=== PATIENT | male | born 1945 | race Caucasian/White ===

== ENCOUNTER 2021-07-03 06:17 | Observation (INO) ==
[2021-07-03] MEDS ORDERED: CeFAZolin Syr 2,000MG/20 ML 2,000 MG/20 ML SYRINGE IVPB ONE (06:53)
[2021-07-03] MEDS ORDERED: *HR* Vasopressin 20 UNIT/ML VIAL ONE (06:57)
[2021-07-03] MEDS ORDERED: Acetaminophen IV 1,000 MG/100 ML BAG IVPB ONE (06:57)
[2021-07-03] MEDS ORDERED: Ringers Solution, Lactated 1,000 ML IVC SCH (07:00)
[2021-07-03] MEDS ORDERED: Ondansetron 4 MG/2 ML VIAL IVP PRN ×2 (07:11→21:30)
[2021-07-03] MEDS ORDERED: *HR* OxyCODONE Immed Rel 5 MG TABLET PO PRN (07:11)
[2021-07-03] MEDS ORDERED: *HR* HYDROmorphone PF 0.5 MG/0.5 ML SYRINGE IVP PRN (07:11)
[2021-07-03] MEDS ORDERED: *HR* Propofol 200 MG/20 ML VIAL IVP ONE (07:18)
[2021-07-03] MEDS ORDERED: *HR* FentaNYL (PF) 100 MCG/2 ML VIAL ONE (07:18)
[2021-07-03] MEDS ORDERED: Lidocaine -MPF 2% 5 ML VIAL ONE (07:19)
[2021-07-03] MEDS ORDERED: *HR* HYDROMORPHONE 2 MG/ML VIAL ONE (08:18)
[2021-07-03] MEDS: *HR* HYDROcodone/Acet 5/325 mg TABLET PO PRN ×3 (11:10→18:32)
[2021-07-03] MEDS ORDERED: *HR* Belladonna Alkaloids/Opium 60 MG RECTAL SUPPOSITORY RC PRN (17:00)
[2021-07-03] MEDS ORDERED: *HR* FentaNYL (PF) 100 MCG/2 ML VIAL IVP ONE (20:28)
[2021-07-03] MEDS ORDERED: *HR* Promethazine 25 MG/ML VIAL IM ONE (20:39)
[2021-07-03] MEDS ORDERED: Naloxone 0.4 MG/ML INJ IVP PRN (21:30)
[2021-07-03] MEDS ORDERED: *HR* Belladonna Alkaloids/Opium 30 MG RECTAL SUPPOSITORY RC PRN (21:30)
[2021-07-03] MEDS ORDERED: Acetaminophen 325 MG TABLET PO PRN (21:30)
[2021-07-03] MEDS: *HR* OxyCODONE Immed Rel 5 MG TABLET PO PRN (22:00)
[2021-07-03] MEDS: 0.9 % Sodium Chloride 1,000 ML IVC SCH (23:06)
[2021-07-04] MEDS: *HR* HYDROcodone/Acet 5/325 mg TABLET PO PRN ×3 (03:03→21:26)
[2021-07-04 04:03] LABS: Basophils % 0.1 %; Eosinophils # 0.1 K/mcL (0.0-0.6); Eosinophils % 0.5 %; Hematocrit 29.2 % (37.5-50.1); Hemoglobin 9.7 g/dL (12.9-16.9); Immature Granulocytes % 1.6 % (0-4); Lymphocytes # 1.1 K/mcL (0.6-4.6); Lymphocytes % 8.2 %; Mean Corpuscular HGB Conc 33.2 g/dL (31.6-35.5); Mean Corpuscular Hemoglobin 29.3 pg (28.0-33.3); Mean Corpuscular Volume 88.2 fL (83.0-100.0); Mean Platelet Volume 10.7 fL (9.4-12.4); Monocytes # 1.3 K/mcL (0.0-1.3); Monocytes % 9.7 %; Platelet Count 241 K/mcL (140-400); Red Blood Count 3.31 M/mcL (4.19-5.50); Red Cell Distribution Width 14.1 % (11.5-14.5); Segmented Neutrophils % 79.9 %; White Blood Count 13.1 K/mcL (4.3-11.1)
[2021-07-04 04:06] LABS: Neutrophils # 10.5 K/mcL (1.6-8.9)
[2021-07-04 04:08] LABS: BUN/Creatinine Ratio 14 (6-26); Blood Urea Nitrogen 11 mg/dL (8-23); Calcium 8.1 mg/dL (8.6-10.3); Carbon Dioxide 30 mEq/L (23-29); Chloride 102 mEq/L (98-107); Glucose 96 mg/dL (70-105); Osmolality,Calculated 283 (280-300); Potassium 4.2 mEq/L (3.5-5.1); Sodium 137 mEq/L (136-145); eGFR For African Americans > 60 (> 60); eGFR For Non-African Americans > 60 (> 60)
[2021-07-04 04:26] LABS: Anisocytosis 1+ (Not Present); Platelet Estimate Normal (Normal)
[2021-07-04] MEDS: 0.9 % Sodium Chloride 1,000 ML IVC SCH ×3 (05:40→21:26)
[2021-07-04] MEDS: *HR* OxyCODONE Immed Rel 5 MG TABLET PO PRN ×2 (08:12→17:27)
[2021-07-05] MEDS: *HR* OxyCODONE Immed Rel 5 MG TABLET PO PRN ×4 (00:20→23:55)
[2021-07-05] MEDS: *HR* HYDROcodone/Acet 5/325 mg TABLET PO PRN (05:46)
[2021-07-05] MEDS: 0.9 % Sodium Chloride 1,000 ML IVC SCH ×2 (05:46→13:42)
[2021-07-05 08:37] LABS: Mean Corpuscular Hemoglobin 28.5 pg (28.0-33.3); Mean Platelet Volume 10.3 fL (9.4-12.4); Platelet Count 190 K/mcL (140-400); Red Blood Count 2.81 M/mcL (4.19-5.50); Red Cell Distribution Width 14.2 % (11.5-14.5); White Blood Count 8.1 K/mcL (4.3-11.1)
[2021-07-05 08:51] LABS: BUN/Creatinine Ratio 11 (6-26); Blood Urea Nitrogen 8 mg/dL (8-23); Calcium 7.9 mg/dL (8.6-10.3); Carbon Dioxide 30 mEq/L (23-29); Chloride 107 mEq/L (98-107); Glucose 88 mg/dL (70-105); Osmolality,Calculated 286 (280-300); Sodium 139 mEq/L (136-145); eGFR For African Americans > 60 (> 60); eGFR For Non-African Americans > 60 (> 60)
[2021-07-05] MEDS ORDERED: Ondansetron 4 MG/2 ML VIAL IVP PRN ×2 (19:17→22:50)
[2021-07-05] MEDS ORDERED: *HR* HYDROmorphone PF 0.5 MG/0.5 ML SYRINGE IVP PRN (19:17)
[2021-07-05] MEDS ORDERED: *HR* OxyCODONE Immed Rel 5 MG TABLET PO PRN (19:17)
[2021-07-05] MEDS ORDERED: Promethazine 6.25 MG in Water for inj. (sterile) 20 ML IVPB PRN (19:17)
[2021-07-05] MEDS ORDERED: Lidocaine -MPF 2% 5 ML VIAL ONE (20:38)
[2021-07-05] MEDS ORDERED: Ondansetron 4 MG/2 ML VIAL ONE (20:38)
[2021-07-05] MEDS ORDERED: *HR* Propofol 200 MG/20 ML VIAL IVP ONE (20:38)
[2021-07-05] MEDS ORDERED: EPHEDrine 50 MG/ML VIAL ONE (21:01)
[2021-07-05] MEDS ORDERED: *HR* FentaNYL (PF) 100 MCG/2 ML VIAL ONE ×2 (21:07→21:48)
[2021-07-05] MEDS ORDERED: *HR* Belladonna Alkaloids/Opium 30 MG RECTAL SUPPOSITORY RC PRN (22:50)
[2021-07-05] MEDS ORDERED: Naloxone 0.4 MG/ML INJ IVP PRN (22:50)
[2021-07-05] MEDS ORDERED: *HR* HYDROcodone/Acet 5/325 mg TABLET PO PRN (22:50)
[2021-07-05] MEDS ORDERED: Acetaminophen 325 MG TABLET PO PRN (22:50)
[2021-07-05] MEDS ORDERED: 0.9 % Sodium Chloride 1,000 ML IVC SCH (22:50)
[2021-07-06 04:41] LABS: Hematocrit 25.5 % (37.5-50.1); Hemoglobin 8.3 g/dL (12.9-16.9); Mean Corpuscular HGB Conc 32.5 g/dL (31.6-35.5); Mean Corpuscular Volume 89.2 fL (83.0-100.0); Mean Platelet Volume 10.1 fL (9.4-12.4); Platelet Count 221 K/mcL (140-400); Red Blood Count 2.86 M/mcL (4.19-5.50); Red Cell Distribution Width 13.8 % (11.5-14.5)
[2021-07-06 05:23] LABS: BUN/Creatinine Ratio 9 (6-26); Blood Urea Nitrogen 7 mg/dL (8-23); Calcium 8.3 mg/dL (8.6-10.3); Carbon Dioxide 29 mEq/L (23-29); Chloride 104 mEq/L (98-107); Glucose 111 mg/dL (70-105); Osmolality,Calculated 285 (280-300); Potassium 4.5 mEq/L (3.5-5.1); Sodium 138 mEq/L (136-145); eGFR For African Americans > 60 (> 60); eGFR For Non-African Americans > 60 (> 60)
[2021-07-06] MEDS: *HR* OxyCODONE Immed Rel 5 MG TABLET PO PRN (05:57)
[2021-07-06 11:24] VITALS: BP 120/72; PULSE 67; TEMP 98.4; O2SAT 93
== END 2021-07-06 12:17 | disposition home or self-care (01) ==
LOC: SAMDAY 06:17 → 3ANU 06:17
PROVIDERS: ADMIT Urology; ATTEND Urology
PROC: [UNRECOGNIZED PROCEDURE] (2021-07-03 07:45)
PROC: UROTURP (2021-07-05 19:20)